=== PATIENT | male | born 1935 | race Caucasian/White ===

== ENCOUNTER 2017-03-23 08:59 | Day surgery (SDC) | payer MEDICARE ==
[2017-03-21 12:15] VITALS: BMI 30.2
[~2017-03-23 08:59] MED LIST: LACTATED RINGERS 1,000 ML IV SCH
[2017-03-23 09:48] LABS: Glucose,Whole Blood 101 mg/dL (75-99)
[2017-03-23 09:50] VITALS: RESP 16; TEMP 97.7
[2017-03-23] MEDS ORDERED: LIDOCAINE 1% 20 ML VIAL (10MG/ML) FOR IV START INTRADERMA ONE (09:53)
[2017-03-23] MEDS ORDERED: PROPOFOL 10 MG/ML 20 ML VIAL IV ONE (10:03)
--- NOTE | 2017-03-23 10:15 | P.PCN ---
Date of Procedure: 03/23/17 Procedure(s) Performed: BRIEF HISTORY: Patient is a 82-year-old, pleasant, white male, scheduled for an elective upper endoscopy as a part of evaluation of globus-like sensation in his throat area and intermittent dysphagia to solids for the last 3 weeks' duration.. PROCEDURE PERFORMED: Esophagogastroduodenoscopy with biopsy and dilation. PREOPERATIVE DIAGNOSIS: Globus pharyngicus and intermittent dysphagia to solids. IV sedation per anesthesia. PROCEDURE: After informed consent was obtained, the patient was brought into the endoscopy unit. IV sedation was administered by Anesthesia under continuous monitoring. Initially the Olympus GIF-140 video endoscope was inserted into the mouth. Esophagus intubated without any difficulty. It was gradually advanced into the stomach and duodenum and carefully examined. The bulb and the second part of the duodenum appeared normal. The scope at this time was withdrawn to the stomach, adequately insufflated with air, and upon careful examination, mucosa of the antrum, body, cardia and the fundus appeared normal. The scope was then withdrawn into the esophagus. Small sliding Hiatal hernia noted. The GE junction was located at 39 cm from the incisors. There was a distal esophageal Schatzki's ring identified at the GE junction and this was dilated using a 15-18 mm balloon for total of 90 seconds and the sequential fashion. Post-dilation there was some oozing identified at the site of dilation. The rest of the esophagus appeared normal. Biopsies were done from esophagus to rule out eosinophilic esophagitis. There were no erosions or ulcerations seen. The proximal cervical esophagus was carefully examined which appeared normal and the patient tolerated the procedure well. IMPRESSION: 1. Distal esophageal Schatzki's ring status post balloon dilation using 15-18 mm TTS balloon as described above. 2. Small Hiatal hernia. 3. Proximal cervical esophagus appeared normal. RECOMMENDATIONS: The findings of this examination were discussed with the patient as well as his family. He was advised to remain on a clear liquid diet for lunch today and soft diet for dinner. We will resume aspirin today.
[2017-03-23 10:47] VITALS: BP 163/71; PULSE 52
== END 2017-03-23 10:56 | disposition home or self-care (01) ==
LOC: ORWHC2ENDO 08:59
PROVIDERS: ATTEND Internal Medicine Gastroenterology
DX: K22.2 Esophageal obstruction (principal); K20.9 Esophagitis, unspecified; K44.9 Diaphragmatic hernia without obstruction or gangrene; I10 Essential (primary) hypertension; E11.9 Type 2 diabetes mellitus without complications; Z79.84 Long term (current) use of oral hypoglycemic drugs; Z79.82 Long term (current) use of aspirin; Z79.899 Other long term (current) drug therapy
CPT/HCPCS: 88305; 43239; 43249; J2704; C1726

== ENCOUNTER → 2019-03-21 | Outpatient (CLI) | payer MEDICARE ==
[2019-03-21 09:42] LABS: Basophils # (A) 0.1 k/uL (0-0.2); Basophils % (A) 1 %; Eosinophils # (A) 0.2 k/uL (0-0.7); Eosinophils % (A) 2 %; HGB 13.7 gm/dL (13.0-17.5); Lymphocytes # (A) 4.4 k/uL (1.0-4.8); Lymphocytes % (A) 41 %; MCH 30.7 pg (25.0-35.0); MCHC 33.4 g/dL (31.0-37.0); Mean Platelet Volume 6.7; Monocytes # (A) 0.5 k/uL (0-1.0); Monocytes % (A) 5 %; Neutrophils # (A) 5.1 k/uL (1.3-7.7); Neutrophils % (A) 48 %; Platelet Count 272 k/uL (150-450); RBC 4.45 m/uL (4.30-5.90); RDW 13.2 % (11.5-15.5); WBC 10.6 k/uL (3.8-10.6)
[2019-03-21 17:40] LABS: African American GFR (CKD) 57.7 (60.0-200.0)
[2019-03-21 18:06] LABS: Hepatitis B Surface Antigen Non-Reactive (Non-Reactive)
== END | disposition home or self-care (01) ==
LOC: LABWHC1 08:56
PROVIDERS: ATTEND Dermatology
DX: L40.0 Psoriasis vulgaris (principal)
CPT/HCPCS: 36415; 82565; 84450; 84460; 85025; 86704; 87340

== ENCOUNTER → 2020-03-25 | Outpatient (CLI) | payer MEDICARE ==
[2020-03-25 12:26] LABS: Basophils # (A) 0.1 k/uL (0-0.2); Basophils % (A) 1 %; Eosinophils # (A) 0.2 k/uL (0-0.7); Eosinophils % (A) 2 %; HGB 13.7 gm/dL (13.0-17.5); Lymphocytes # (A) 3.6 k/uL (1.0-4.8); Lymphocytes % (A) 32 %; MCH 31.6 pg (25.0-35.0); MCHC 34.2 g/dL (31.0-37.0); MCV 92.3 fL (80.0-100.0); Mean Platelet Volume 7.6; Monocytes # (A) 0.5 k/uL (0-1.0); Monocytes % (A) 4 %; Neutrophils # (A) 6.6 k/uL (1.3-7.7); Neutrophils % (A) 59 %; Platelet Count 217 k/uL (150-450); RBC 4.33 m/uL (4.30-5.90); WBC 11.2 k/uL (3.8-10.6)
[2020-03-25 18:48] LABS: African American GFR (CKD) 52.4 (60.0-200.0); Non-African American GFR(CKD) 45.2 (60.0-200.0)
== END | disposition home or self-care (01) ==
LOC: LABWHC1 11:08
PROVIDERS: ATTEND Physician Assistant Medical
DX: L40.0 Psoriasis vulgaris (principal)
CPT/HCPCS: 36415; 82565; 84450; 84460; 85025; 86480

== ENCOUNTER 2021-02-03 10:19 | Observation (INO) | payer MEDICARE ==
[2021-02-03] MEDS ORDERED: METOCLOPRAMIDE 5 MG/ML 2 ML VIAL IVP STA (10:45)
[2021-02-03] MEDS ORDERED: GLUCAGON 1 MG/ML VIAL IVP STA (10:46)
[2021-02-03] MEDS ORDERED: DIAZEPAM 5 MG/ML 2 ML INJ IVP STA (10:46)
[2021-02-03] MEDS ORDERED: NITROGLYCERIN SL TABS 0.4 MG TAB SUBLINGUAL STA (10:46)
--- NOTE | 2021-02-03 12:40 | ED ---
General Adult HPI - General Source: patient, RN notes reviewed Mode of arrival: ambulatory Limitations: no limitations <Oneil Benitez - Last Filed: 02/03/21 13:54> <Timothy Freitas - Last Filed: 02/03/21 20:30> - General Chief complaint: ENT Stated complaint: Unable to Swallow Time Seen by Provider: 02/03/21 10:32 - History of Present Illness Initial comments: Patient is an 85-year-old male presented to the emergency room today with a chief complaint of difficulty swallowing. He does admit that he's had a history of esophageal stricture in the past. He states it's been several years since she's needed to be stretched. He does admit that woke up yesterday and was unable to keep anything down. He states she's not been able to keep down liquids or food. States had the same results as morning when he tried to eat. Patient states feels it stuck approximately chcf down and comes back up. He states was not eating or drinking anything that he believes got stuck in the way. He states that he believes that he's been feeling some sensation of things getting stuck but it is usually past until yesterday. Patient states he has not called his GI specialist. Patient denies any recent fever, chills, shortness of breath, chest pain, back pain, abdominal pain, nausea or vomiting, numbness or tingling, headaches or visual changes, or any other complaints. (Oneil Benitez) - Related Data Home Medications Medication Instructions Recorded Confirmed Latanoprost Ophth [Xalatan 0.005%] 1 drop BOTH EYES HS 03/18/15 02/03/21 Tamsulosin [Flomax] 0.4 mg PO HS 03/18/15 02/03/21 hydroCHLOROthiazide [Hydrodiuril] 25 mg PO DAILY 03/18/15 02/03/21 metFORMIN HCL [Glucophage Xr] 750 mg PO DAILY 03/18/15 02/03/21 Adalimumab [Humira(Cf) Pen] 40 mg SQ Q14D 02/03/21 02/03/21 Brimonidine Tartrate [Alphagan P 1 drop BOTH EYES BID 02/03/21 02/03/21 0.2% Ophth Soln] lisinopriL [Zestril] 20 mg PO DAILY 02/03/21 02/03/21 Allergies Allergy/AdvReac Type Severity Reaction Status Date / Time No Known Allergies Allergy Verified 02/03/21 16:56 Review of Systems ROS Other: All systems not noted in ROS Statement are negative. <EmmanuelOneil - Last Filed: 02/03/21 13:54> ROS Other: All systems not noted in ROS Statement are negative. <Timothy Freitas - Last Filed: 02/03/21 20:30> ROS Statement: Those systems with pertinent positive or pertinent negative responses have been documented in the HPI. Past Medical History Past Medical History: Eye Disorder, Hypertension, Pneumonia, Prostate Disorder Additional Past Medical History / Comment(s): states takes metformin for weight loss, not a diabetic, Hx of dysphagia with dilation of esophagus., glaucoma, hx. heart murmur, pneumonia (2011), enlarged prostate, states he feels like something is stuck in his throat. History of Any Multi-Drug Resistant Organisms: None Reported Past Surgical History: Bowel Resection Additional Past Surgical History / Comment(s): nose surgery x2 Past Anesthesia/Blood Transfusion Reactions: No Reported Reaction Past Psychological History: No Psychological Hx Reported Past Alcohol Use History: Rare Past Drug Use History: None Reported - Past Family History Son(s) Family Medical History: Cancer Additional Family Medical History / Comment(s): BRAIN CANCER Mother Family Medical History: No Reported History <BenitezOneil - Last Filed: 02/03/21 13:54> General Exam Limitations: no limitations <BenitezOneil - Last Filed: 02/03/21 13:54> - General Exam Comments Initial Comments: General: The patient is awake and alert, in no distress, and does not appear acutely ill. Eye: extra-ocular movements are intact. There is normal conjunctiva bilaterally. No signs of icterus. Ears, nose, mouth and throat: There are moist mucous membranes and no oral lesions. Neck: The neck is supple, there is no tenderness or JVD. Cardiovascular: There is a regular rate and rhythm. No murmur, rub or gallop is appreciated. Respiratory: Lungs are clear to auscultation, respirations are non-labored, breath sounds are equal. No wheezes, stridor, rales, or rhonchi. Gastrointestinal: M soft on palpation nontender. Musculoskeletal: Normal ROM, no tenderness. Strength 5/5. Sensation intact. Neurological: A&O x 3. CN II-XII intact, There are no obvious motor or sensory deficits. Coordination appears grossly intact. Speech is normal. Skin: Skin is warm and dry and no rashes or lesions are noted. Psychiatric: Cooperative, appropriate mood & affect, normal judgment. (Oneil Benitez) Course Vital Signs 02/03/21 02/03/21 02/03/21 10:22 11:40 11:52 Temperature 98.0 F Pulse Rate 67 68 64 Respiratory 18 18 18 Rate Blood Pressure 167/84 126/72 153/76 O2 Sat by Pulse 97 99 97 Oximetry 02/03/21 02/03/21 02/03/21 17:05 18:32 18:37 Temperature Pulse Rate 69 82 Respiratory 18 18 Rate Blood Pressure 181/94 91/50 111/60 O2 Sat by Pulse 99 93 L Oximetry 02/03/21 19:55 Temperature 97.4 F L Pulse Rate 64 Respiratory 16 Rate Blood Pressure 151/83 O2 Sat by Pulse 98 Oximetry Medical Decision Making - Lab Data Result diagrams: 02/03/21 18:53 02/03/21 18:53 <Timothy Freitas D - Last Filed: 02/03/21 20:30> - Medical Decision Making Patient is signed out to me by physician animal care assistant Oneil Benitez. Briefly, patient is 85-year-old male with history of esophageal stricture. Patient states that he's been having worsening dysphagia. Gastroenterology was cont acted and will evaluate patient at the bedside. One of our nurses spoke with the Endo nurse and there is plans for Dr. Webb to do upper endoscopy in the Endo suite scheduled for 5:30 PM. I received a report from the nurse that during the endoscopy procedure patient had a 10 second episode of asystole. Patient allegedly did not receive any CPR. He is back to his baseline. During endoscopy there was a distal esophageal stricture with food impaction. The food bolus was removed. Nurse who was in the procedure reports that patient had an episode of asystole during the portion were Dr. Webb was trying to push fluid bolus through the esophageal stricture. Patient evaluated at the bedside at 6:26 PM. He is found to be stable medical condition. Patient had no complaints at the bedside. EKG interpretation: Ventricular rate 82, sinus rhythm,. 162, QRS 82, QTC 429. No MT prolongation, no QTC prolongation, no ST or T-wave changes noted. No old EKG for comparison. Overall this EKG is unremarkable. Laboratory evaluation obtained. There is a leukocytosis of 16.2. Sightly from stress. Patient is no localizing symptoms. Coag panel is negative. Metabolic panel is within acceptable limits. Troponin is 0.015. Chest x-ray is nonacute. Patient reevaluated at bedside at 8:15 PM found to be stable medical condition. Given the patient had a witnessed asystolic event patient be admitted for cardiac monitoring with cardiology consultation. Patient be admitted to [facility]. (Timothy Fretias) - Lab Data Lab Results 02/03/21 02/03/21 02/03/21 Range/Units 18:53 18:53 18:53 WBC 16.2 H (3.8-10.6) k/uL RBC 4.82 (4.30-5.90) m/uL Hgb 14.8 (13.0-17.5) gm/dL Hct 44.3 (39.0-53.0) % MCV 91.8 (80.0-100.0) fL MCH 30.8 (25.0-35.0) pg MCHC 33.5 (31.0-37.0) g/dL RDW 12.8 (11.5-15.5) % Plt Count 283 (150-450) k/uL MPV 7.9 Neutrophils % 60 % Lymphocytes % 33 % Monocytes % 4 % Eosinophils % 1 % Basophils % 1 % Neutrophils # 9.8 H (1.3-7.7) k/uL Lymphocytes # 5.4 H (1.0-4.8) k/uL Monocytes # 0.7 (0-1.0) k/uL Eosinophils # 0.1 (0-0.7) k/uL Basophils # 0.1 (0-0.2) k/uL PT 10.4 (9.0-12.0) sec INR 1.0 (<1.2) APTT 22.2 (22.0-30.0) sec Sodium 138 (137-145) mmol/L Potassium 4.4 (3.5-5.1) mmol/L Chloride 110 H (98-107) mmol/L Carbon Dioxide 19 L (22-30) mmol/L Anion Gap 9 mmol/L BUN 20 (9-20) mg/dL Creatinine 1.34 H (0.66-1.25) mg/dL Est GFR (CKD-EPI)AfAm 55 (>60 ml/min/1.73 sqM) Est GFR (CKD-EPI)NonAf 48 (>60 ml/min/1.73 sqM) Glucose 110 H (74-99) mg/dL Calcium 9.3 (8.4-10.2) mg/dL Magnesium 1.8 (1.6-2.3) mg/dL Troponin I (0.000-0.034) ng/mL 02/03/21 Range/Units 18:53 WBC (3.8-10.6) k/uL RBC (4.30-5.90) m/uL Hgb (13.0-17.5) gm/dL Hct (39.0-53.0) % MCV (80.0-100.0) fL MCH (25.0-35.0) pg MCHC (31.0-37.0) g/dL RDW (11.5-15.5) % Plt Count (150-450) k/uL MPV Neutrophils % % Lymphocytes % % Monocytes % % Eosinophils % % Basophils % % Neutrophils # (1.3-7.7) k/uL Lymphocytes # (1.0-4.8) k/uL Monocytes # (0-1.0) k/uL Eosinophils # (0-0.7) k/uL Basophils # (0-0.2) k/uL PT (9.0-12.0) sec INR (<1.2) APTT (22.0-30.0) sec Sodium (137-145) mmol/L Potassium (3.5-5.1) mmol/L Chloride (98-107) mmol/L Carbon Dioxide (22-30) mmol/L Anion Gap mmol/L BUN (9-20) mg/dL Creatinine (0.66-1.25) mg/dL Est GFR (CKD-EPI)AfAm (>60 ml/min/1.73 sqM) Est GFR (CKD-EPI)NonAf (>60 ml/min/1.73 sqM) Glucose (74-99) mg/dL Calcium (8.4-10.2) mg/dL Magnesium (1.6-2.3) mg/dL Troponin I 0.015 (0.000-0.034) ng/mL Disposition <Oneil Benitez - Last Filed: 02/03/21 13:54> <Timothy Freitas - Last Filed: 02/03/21 20:30> Clinical Impression: Asystole Disposition: ADMITTED IP TO THIS HOSP Condition: Fair Referrals: Alondra Casanova MD [Primary Care Provider] - 1-2 days
[2021-02-03] MEDS ORDERED: ePHEDrine SULFATE/0.9% NACL/PF 50 MG/5 ML SYRINGE IV ONE (17:33)
[2021-02-03] MEDS ORDERED: PROPOFOL 10 MG/ML 20 ML VIAL IV ONE (17:33)
[2021-02-03] MEDS ORDERED: LIDOCAINE 1% INJ 10MG/ML (20 ML MDV) ONE (17:33)
[2021-02-03] MEDS ORDERED: GLYCOPYRROLATE 0.2 MG/ML 2 ML VIAL ONE (17:33)
[2021-02-03] MEDS ORDERED: SODIUM CHLORIDE 0.9% 500 ML 500 ML IV ONE (17:42)
--- NOTE | 2021-02-03 18:11 | P.PCN ---
Date of Procedure: 02/03/21 Procedure(s) Performed: BRIEF HISTORY: Patient is a 79-year-old, pleasant, white male came to the emergency room with food impaction. He was eating toast with meat yesterday evening and could not swallow any further. He scheduled for an upper endoscopy. He had a similar episode about 3 years ago and last EGD was performed in 70 PROCEDURE PERFORMED: Esophagogastroduodenoscopy with foreign body removal. PREOPERATIVE DIAGNOSIS: Acute food impaction. IV sedation per anesthesia. PROCEDURE: After informed consent was obtained, the patient was brought into the endoscopy unit. IV sedation was administered by Anesthesia under continuous monitoring. Initially the Olympus GIF-140 video endoscope was inserted into the mouth. Esophagus intubated without any difficulty. It was gradually advanced into the midesophagus. There was large amount of liquid was aspirated. In the distal esophagus there was a food bolus that was impacted and using the snare that was able to remove part of the food bolus of the mouth. Subsequently the rest of the food was gently pushed into the stomach. The scope was advanced into the stomach and duodenum and carefully examined. The bulb and the second part of the duodenum appeared normal. The scope at this time was withdrawn to the stomach, adequately insufflated with air, and upon careful examination, mucosa of the antrum, body, cardia and the fundus appeared normal. The scope was then withdrawn into the esophagus. The GE junction was located at 39 cm from the incisors. Small to moderate size hiatal hernia noted. There was a distal esophageal stricture identified with a luminal diameter of 12-15 mm but no esophageal dilation was performed because of prolonged food impaction. The rest of esophagus was very tortuous especially in the distal esophagus. the patient tolerated the procedure well. IMPRESSION: 1. Distal esophageal stricture with food impaction status post removal as described above. 2. Tortuous distal esophagus. RECOMMENDATIONS: The findings of this examination were discussed with the patient. Patient had an episode of asystole and bradycardia during the procedure and hence he will be sent back to the floor for the cardiac workup and if needed hospitalization today. He will be started on a soft diet and continue on Protonix 40 mg by mouth daily..
[2021-02-03 19:03] LABS: Basophils # (A) 0.1 k/uL (0-0.2); Basophils % (A) 1 %; Eosinophils # (A) 0.1 k/uL (0-0.7); Eosinophils % (A) 1 %; HCT 44.3 % (39.0-53.0); HGB 14.8 gm/dL (13.0-17.5); Lymphocytes # (A) 5.4 k/uL (1.0-4.8); Lymphocytes % (A) 33 %; MCH 30.8 pg (25.0-35.0); MCHC 33.5 g/dL (31.0-37.0); MCV 91.8 fL (80.0-100.0); Mean Platelet Volume 7.9; Monocytes # (A) 0.7 k/uL (0-1.0); Monocytes % (A) 4 %; Neutrophils # (A) 9.8 k/uL (1.3-7.7); Neutrophils % (A) 60 %; Platelet Count 283 k/uL (150-450); RBC 4.82 m/uL (4.30-5.90); RDW 12.8 % (11.5-15.5); WBC 16.2 k/uL (3.8-10.6)
[2021-02-03 19:12] LABS: Calcium 9.3 mg/dL (8.4-10.2); Magnesium 1.8 mg/dL (1.6-2.3); Potassium 4.4 mmol/L (3.5-5.1)
[2021-02-03 19:46] LABS: Partial Thromboplastin Time 22.2 sec (22.0-30.0); Prothrombin Time 10.4 sec (9.0-12.0)
--- NOTE | 2021-02-03 19:49 | CONS ---
CONSULTATION DATE OF SERVICE: February 03, 2021. REASON FOR CONSULTATION: Acute food impaction. HISTORY OF PRESENT ILLNESS: The patient is an 85-year-old pleasant white male with history of esophageal stricture in the past. Came to the emergency room this afternoon complaining of dysphagia. Apparently, he ate some dinner last night after which he was not able to swallow any further. The patient does not recall what he ate, but he thinks it hamburger gravy and toast. In the ER, he was given glucagon with no help. He was given some sips of water and patient could not swallow any further and hence we are consulted for EGD with foreign body removal. The patient states that he had a similar episode in 2017. He denies any heartburn. PAST MEDICAL HISTORY: Significant for hypertension, hyperlipidemia, diabetes mellitus. MEDICATIONS: At home, aspirin, metformin, lisinopril, hydrochlorothiazide, Flomax, Xalatan. ALLERGIES: None. SOCIAL HISTORY: No smoking. No alcohol use. SURGICAL HISTORY: Bowel resection and EGD with dilation. FAMILY HISTORY: Son had brain cancer. REVIEW OF SYSTEMS: CARDIOPULMONARY: He denies any chest pain or shortness of breath. GENITOURINARY: No dysuria or hematuria. MUSCULOSKELETAL unremarkable. SKIN unremarkable. ENDOCRINE unremarkable. PSYCHIATRIC: Unremarkable. NEUROLOGY: Unremarkable. ENT/VISION: Unremarkable. CONSTITUTIONAL: No recent weight loss. No fever, chills, night sweats. PHYSICAL EXAMINATION: Blood pressure is 167/84, pulse rate 67, temperature 98. HEENT examination unremarkable. Conjunctivae pink. Sclerae anicteric. Oral cavity no lesions. NECK: No JVD or lymph node enlargement. CHEST was clear to auscultation. HEART: Regular rate and rhythm. ABDOMEN: Soft, bowel sounds are positive. No organomegaly. EXTREMITIES: No pedal edema. NEURO: He is alert and oriented x3. No focal deficits. IMPRESSION: Acute food impaction in this patient who had prior episodes in the past. Last EGD with dilation was in 2017. RECOMMENDATIONS: Proceed with EGD with foreign body removal. Discussed with the patient the risks, benefits and complications and he is agreeable to it. Thank you for this consultation. MMODL / IJN: [id number] /
--- NOTE | 2021-02-03 19:55 | XR ---
EXAMINATION TYPE: XR chest 1V portable DATE OF EXAM: 02/03/2021 COMPARISON: NONE HISTORY: Chest pain TECHNIQUE: Single frontal view of the chest is obtained. FINDINGS: There is no focal air space opacity, pleural effusion, or pneumothorax seen. The cardiac silhouette size is within normal limits. The osseous structures are intact. IMPRESSION: No acute process.
[2021-02-03] MEDS ORDERED: NALOXONE 0.4 MG/ML 1 ML VIAL IV PRN (20:28)
[2021-02-03] MEDS ORDERED: SODIUM CHLORIDE 0.9% 1,000 ML IV SCH (20:30)
--- NOTE | 2021-02-04 01:25 | P.HPIM ---
History of Present Illness H&P Date: 02/03/21 Chief Complaint: arrhythmia 85 year old male with hypertension , BPH patient presented for EGD with GI , due to dysphagia to solids. He tolerated procedure and found to have esophageal stricture. however to mcdaniels the end of the procedure , he had an episode of bradycardia and possible brief asystole. for which he was kept overnight for monitoring and cardiology eval he is feeling well, tolerating PO intake , denies any chest pain , trouble breathing, syncope or near syncope , dizziness, nausea or vomiting, abd pain changes in urinary or bowel habits. denies history of CAD , or arrhythmias , denies any cardiac history Troponin is negative EKG NSR with PVCs Review of Systems Pertinent positives as noted in HPI. All other systems were reviewed and are negative Past Medical History Past Medical History: Eye Disorder, Hypertension, Pneumonia, Prostate Disorder Additional Past Medical History / Comment(s): states takes metformin for weight loss, not a diabetic, Hx of dysphagia with dilation of esophagus., glaucoma, hx. heart murmur, pneumonia (2011), enlarged prostate, states he feels like something is stuck in his throat. History of Any Multi-Drug Resistant Organisms: None Reported Past Surgical History: Bowel Resection Additional Past Surgical History / Comment(s): nose surgery x2 Past Anesthesia/Blood Transfusion Reactions: No Reported Reaction Past Psychological History: No Psychological Hx Reported Past Alcohol Use History: Rare Past Drug Use History: None Reported - Past Family History Son(s) Family Medical History: Cancer Additional Family Medical History / Comment(s): BRAIN CANCER Mother Family Medical History: No Reported History Medications and Allergies Home Medications Medication Instructions Recorded Confirmed Type Latanoprost Ophth [Xalatan 0.005%] 1 drop BOTH EYES HS 03/18/15 02/03/21 History Tamsulosin [Flomax] 0.4 mg PO HS 03/18/15 02/03/21 History hydroCHLOROthiazide [Hydrodiuril] 25 mg PO DAILY 03/18/15 02/03/21 History metFORMIN HCL [Glucophage Xr] 750 mg PO DAILY 03/18/15 02/03/21 History Adalimumab [Humira(Cf) Pen] 40 mg SQ Q14D 02/03/21 02/03/21 History Brimonidine Tartrate [Alphagan P 1 drop BOTH EYES BID 02/03/21 02/03/21 History 0.2% Ophth Soln] lisinopriL [Zestril] 20 mg PO DAILY 02/03/21 02/03/21 History Allergies Allergy/AdvReac Type Severity Reaction Status Date / Time No Known Allergies Allergy Verified 02/03/21 16:56 Physical Exam Vitals: Vital Signs Temp Pulse Resp BP Pulse Ox 02/03/21 19:55 97.4 F L 64 16 151/83 98 02/03/21 18:37 111/60 02/03/21 18:32 82 18 91/50 93 L 02/03/21 17:05 69 18 181/94 99 02/03/21 11:52 64 18 153/76 97 02/03/21 11:40 68 18 126/72 99 02/03/21 10:22 98.0 F 67 18 167/84 97 Intake and Output 02/03/21 02/03/21 02/03/21 06:59 14:59 22:59 Intake Total 400 Balance 400 Intake: IV 400 Other: Weight 88.451 kg Constitutional: No acute distress, conversant, pleasant Eyes: Anicteric sclerae, moist conjunctiva, Pupils equal round reactive to light ENMT: NC/AT Oropharynx clear, no erythema, or exudates Neck: Supple, FROM, no masses, or JVD No carotid bruits No thyromegaly Lungs: Clear to auscultation Clear to percussion Normal respiratory effort, no accessory muscle use Cardiovascular: Heart regular in rate and rhythm, No murmurs, gallops, or rubs No peripheral edema Abdominal: Soft Nontender, no guarding, rebound or rigidity Abdomen moving with respiration Normoactive bowel sounds No hepatomegaly, No splenomegaly No palpable mass No abdominal wall hernia noted Skin: Normal temperature, tone, texture, turgor No induration No subcutaneous nodules No rash, lesions No ulcers Extremities: No digital cyanosis No clubbing Pedal pulses intact and symmetrical Radial pulses intact and symmetrical No calf tenderness Psychiatric: Alert and oriented to person, place and time Appropriate affect fair judgement Neuro Muscles Strength 5/5 in all 4 extremities Sensation to light touch grossly present throughout Cranial nerves II-XII grossly intact No focal sensory deficits Lymphatics: no palpable cervical or supraclavicular , or inguinal lymph nodes Results CBC & Chem 7: 02/03/21 18:53 02/03/21 18:53 Labs: Abnormal Lab Results - Last 24 Hours (Table) 02/03/21 02/03/21 Range/Units 18:53 18:53 WBC 16.2 H (3.8-10.6) k/uL Neutrophils # 9.8 H (1.3-7.7) k/uL Lymphocytes # 5.4 H (1.0-4.8) k/uL Chloride 110 H (98-107) mmol/L Carbon Dioxide 19 L (22-30) mmol/L Creatinine 1.34 H (0.66-1.25) mg/dL Glucose 110 H (74-99) mg/dL Assessment and Plan Assessment: Episodes of bradycardia and possible asystole cardiac monitoring EKG normal sinus rhythm with PVCs Trend troponins Cardiology eval Electrolytes unremarkable Troponins negative Dysphagia status post EGD Found to have esophageal strictures Management per GI Follow-up outpatient BPH resume Flomax Full code DVT prophylaxis mechanical Discussed with: Patient, ER, RN Anticipated length of stay less than than [address]: home A total of 65 minutes was spent on the care of this complex patient more than 50% of the time was spent in counseling and care coordination.
[2021-02-04 05:07] LABS: Calcium 8.5 mg/dL (8.4-10.2); Potassium 4.2 mmol/L (3.5-5.1)
[2021-02-04] MEDS ORDERED: lisinopriL 20 MG TAB PO SCH (09:00)
--- NOTE | 2021-02-04 13:01 | P.CRDCN ---
History of Present Illness History of present illness: HISTORY OF PRESENTING ILLNESS This is a pleasant 85-year-old male past medical history significant for hypertension, esophageal stricture and aortic stenosis. 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 We have been asked to see in consultation for bradycardia during EGD. He presented to ER yesterday with symptoms of something being stuck in his throat. He underwent an EGD with foreign body removal. According to the EGD report there was an episode of asystole and bradycardia during the procedure. There is no telemetry tracings documentation of this episode. EKG reveals sinus rhythm with occasional PVCs. Heart rate of 82. Telemetry tracings reviewed, persistent sinus mechanism with no significant pauses or bradycardia noted. Chest x-ray is negative for an acute cardiopulmonary process. Laboratory data reviewed, WBC 16.2, hemoglobin 14.8, platelets 283, sodium 134, potassium 4.2, creatinine 1.29, magnesium 1.8 troponin negative 1. Review of records reveals he had an echocardiogram in 2015 revealing preserved LV systolic function with ejection fraction 60-65% with mild aortic stenosis with a mean gradient of 12 mmHg and a valve area of 2.5 cm. Current daily cardiac medications include hydrochlorothiazide 25 mg daily and lisinopril 20 mg daily. REVIEW OF SYSTEMS At the time of my exam: CONSTITUTIONAL: Denies fever or chills. CARDIOVASCULAR: Denies chest pain, shortness of breath, orthopnea, PND or palpitations. RESPIRATORY: Denies cough. GASTROINTESTINAL: Denies abdominal pain, diarrhea, constipation, nausea or vomiting. MUSCULOSKELETAL: Denies myalgias. NEUROLOGIC: Denies numbness, tingling, headache or weakness. ENDOCRINE: Denies fatigue, weight change, polydipsia or polyurina. GENITOURINARY: Denies burning, hematuria or urgency with micturation. HEMATOLOGIC: Denies history of anemia or bleeding. PHYSICAL EXAMINATION Blood pressure 174/74 heart rate 58 afebrile and maintaining oxygen saturation on room air. CONSTITUTIONAL: No apparent distress. HEENT: Head is normocephalic. Pupils are equal, round. Sclerae anicteric. Mucous membranes of the mouth are moist. No JVD. No carotid bruit. CHEST EXAMINATION: Lungs are clear to auscultation. No chest wall tenderness is noted on palpation or with deep breathing. HEART EXAMINATION: Regular rate and rhythm. S1, S2 heard. Soft systolic ejection murmur at the base, no gallops or rub. ABDOMEN: Soft, nontender. EXTREMITIES: 2+ peripheral pulses, no lower extremity edema and no calf tenderness. NEUROLOGIC EXAMINATION: Patient is awake, alert and oriented x3. ASSESSMENT Food impaction s/p EGD Possible bradycardia Hypertension Aortic stenosis PLAN Cannot confirm if there was actual bradycardia, as there are no telemetry strips for review. Obtain 2D echocardiogram and doppler study to assess cardiac structure and function. Thank you kindly for this consultation. Nurse Practitioner note has been reviewed, I agree with a documented findings and plan of care. Patient was seen and examined. Past Medical History Past Medical History: Eye Disorder, Hypertension, Pneumonia, Prostate Disorder Additional Past Medical History / Comment(s): states takes metformin for weight loss, not a diabetic, Hx of dysphagia with dilation of esophagus., glaucoma, hx. heart murmur, pneumonia (2011), enlarged prostate, states he feels like something is stuck in his throat. History of Any Multi-Drug Resistant Organisms: None Reported Past Surgical History: Bowel Resection Additional Past Surgical History / Comment(s): nose surgery x2 Past Anesthesia/Blood Transfusion Reactions: No Reported Reaction Past Psychological History: No Psychological Hx Reported Past Alcohol Use History: Rare Past Drug Use History: None Reported - Past Family History Son(s) Family Medical History: Cancer Additional Family Medical History / Comment(s): BRAIN CANCER Mother Family Medical History: No Reported History Medications and Allergies Home Medications Medication Instructions Recorded Confirmed Type Latanoprost Ophth [Xalatan 0.005%] 1 drop BOTH EYES HS 03/18/15 02/03/21 History Tamsulosin [Flomax] 0.4 mg PO HS 03/18/15 02/03/21 History hydroCHLOROthiazide [Hydrodiuril] 25 mg PO DAILY 03/18/15 02/03/21 History metFORMIN HCL [Glucophage Xr] 750 mg PO DAILY 03/18/15 02/03/21 History Adalimumab [Humira(Cf) Pen] 40 mg SQ Q14D 02/03/21 02/03/21 History Brimonidine Tartrate [Alphagan P 1 drop BOTH EYES BID 02/03/21 02/03/21 History 0.2% Ophth Soln] lisinopriL [Zestril] 20 mg PO DAILY 02/03/21 02/03/21 History Allergies Allergy/AdvReac Type Severity Reaction Status Date / Time No Known Allergies Allergy Verified 02/03/21 16:56 Physical Exam Vitals: Vital Signs Temp Pulse Pulse Resp BP BP Pulse Ox 02/04/21 11:31 98.1 F 58 L 18 174/74 97 02/04/21 08:00 98 F 70 18 149/66 98 02/04/21 06:27 98.3 F 75 16 150/72 97 02/04/21 02:00 98.1 F 74 16 147/60 98 02/03/21 19:55 97.4 F L 64 16 151/83 98 02/03/21 18:37 111/60 02/03/21 18:32 82 18 91/50 93 L 02/03/21 17:05 69 18 181/94 99 Intake and Output 02/03/21 02/04/21 02/04/21 22:59 06:59 14:59 Intake Total 400 Balance 400 Intake: IV 400 Other: Weight 88.451 kg Results 02/03/21 18:53 02/04/21 04:39 Cardiac Enzymes 02/03/21 Range/Units 18:53 Troponin I 0.015 (0.000-0.034) ng/mL Coagulation 02/03/21 Range/Units 18:53 PT 10.4 (9.0-12.0) sec APTT 22.2 (22.0-30.0) sec CBC 02/03/21 Range/Units 18:53 WBC 16.2 H (3.8-10.6) k/uL RBC 4.82 (4.30-5.90) m/uL Hgb 14.8 (13.0-17.5) gm/dL Hct 44.3 (39.0-53.0) % Plt Count 283 (150-450) k/uL Comprehensive Metabolic Panel 02/03/21 02/04/21 Range/Units 18:53 04:39 Sodium 138 134 L (137-145) mmol/L Potassium 4.4 4.2 (3.5-5.1) mmol/L Chloride 110 H 105 (98-107) mmol/L Carbon Dioxide 19 L 20 L (22-30) mmol/L BUN 20 23 H (9-20) mg/dL Creatinine 1.34 H 1.29 H (0.66-1.25) mg/dL Glucose 110 H 115 H (74-99) mg/dL Calcium 9.3 8.5 (8.4-10.2) mg/dL Current Medications Generic Name Dose Route Start Last Admin Trade Name Freq PRN Reason Stop Dose Admin Sodium Chloride 1,000 mls @ 20 mls/hr 02/03/21 20:30 02/04/21 07:58 Saline 0.9% IV Not Given .Q24H MAMTA Lisinopril 20 mg 02/04/21 09:00 02/04/21 08:15 Lisinopril 20 Mg Tab PO 20 mg DAILY MAMTA Administration Naloxone HCl 0.2 mg 02/03/21 20:28 Naloxone 0.4 Mg/Ml 1 Ml Vial IV Q2M PRN Opioid Reversal Tamsulosin HCl 0.4 mg 02/04/21 21:00 Tamsulosin 0.4 Mg Cap.Er.24h PO HS MAMTA Intake and Output 02/03/21 02/04/21 02/04/21 22:59 06:59 14:59 Intake Total 400 Balance 400 Intake: IV 400 Other: Weight 88.451 kg 02/03/21 18:53 02/04/21 04:39
[2021-02-04 15:43] VITALS: BP 186/80
[2021-02-04] MEDS ORDERED: hydrALAZINE HCL 25 MG TAB PO STA (16:11)
--- NOTE | 2021-02-04 16:22 | P.DS ---
Providers Date of admission: 02/03/21 20:29 Expected date of discharge: 02/04/21 Attending physician: Danielle Marie MD Consults: 02/04/21 01:18 Consult Physician Routine Consulting Provider: Brad Null Consult Reason/Comments: asystole and bradycardia during EGD Do you want consulting provider notified?: Yes, Notify in am Primary care physician: Alondra Casanova MD Hospital Course: Episodes of bradycardia and possible asystole cardiac monitoring Dysphagia Food Impaction Esophageal Stricture Patient admitted after episode of bradycardia for cardiology evaluation. Pt seen by cardiology who reviewed with no further bradycardic events. They recommended d/c with PCP f/u. Pt had no further complaints or events during hospitalization. Trops negative. Pt had resolution of his dysphagia symptoms as well while in house following EGD for food impaction. Pt will f/u with GI. Assessment: Gen: awake, alert HEENT: normocephalic, atraumatic, good hearing acuity, moist mucous membranes Resp: good air exchange, breathing comfortably with no accessory muscle use CVS: good distal perfusion x 4, GI: soft, NTTP, ND : no SPT, no CVAT, cox catheter not present MSK: no pitting edema, no clubbing Neuro: non-focal, moving all extremities Psych: cooperative, euthymic mood Patient Condition at Discharge: Good Plan - Discharge Summary New Discharge Prescriptions: Continue Latanoprost Ophth [Xalatan 0.005%] 1 drop BOTH EYES HS metFORMIN HCL [Glucophage Xr] 750 mg PO DAILY Tamsulosin [Flomax] 0.4 mg PO HS hydroCHLOROthiazide [Hydrodiuril] 25 mg PO DAILY lisinopriL [Zestril] 20 mg PO DAILY Adalimumab [Humira(Cf) Pen] 40 mg SQ Q14D Brimonidine Tartrate [Alphagan P 0.2% Ophth Soln] 1 drop BOTH EYES BID Discharge Medication List Latanoprost Ophth [Xalatan 0.005%] 1 drop BOTH EYES HS 03/18/15 [History] Tamsulosin [Flomax] 0.4 mg PO HS 03/18/15 [History] hydroCHLOROthiazide [Hydrodiuril] 25 mg PO DAILY 03/18/15 [History] metFORMIN HCL [Glucophage Xr] 750 mg PO DAILY 03/18/15 [History] Adalimumab [Humira(Cf) Pen] 40 mg SQ Q14D 02/03/21 [History] Brimonidine Tartrate [Alphagan P 0.2% Ophth Soln] 1 drop BOTH EYES BID 02/03/21 [History] lisinopriL [Zestril] 20 mg PO DAILY 02/03/21 [History] Follow up Appointment(s)/Referral(s): Brad Null MD [STAFF PHYSICIAN] - 1 Week (Office will call you with an appointment.) Alondra Casanova MD [Primary Care Provider] - 02/06/21 10:30 am Patient Instructions/Handouts: Bradycardia (DC), Upper Endoscopy (DC) Discharge Disposition: HOME SELF-CARE
[2021-02-04 16:35] VITALS: PULSE 66; RESP 16; TEMP 97.6
[2021-02-04] MEDS ORDERED: TAMSULOSIN 0.4 MG CAP.ER.24H PO SCH (21:00)
--- NOTE | 2021-02-05 11:31 | ECHOF ---
Referral Reason:MURMUR MEASUREMENTS -------- HEIGHT: 175.3 cm WEIGHT: 88.5 kg BP: RVIDd: 3.2 cm (< 3.3) IVSd: 1.4 cm (0.6 - 1.1) LVIDd: 4.6 cm (3.9 - 5.3) LVPWd: 1.8 cm (0.6 - 1.1) IVSs: 1.9 cm LVIDs: 3.3 cm LVPWs: 1.7 cm LA Diam: 5.0 cm (2.7 - 3.8) MV EXCURSION: 19.913 mm (> 18.000) MV EF SLOPE: 65 mm/s (70 - 150) EPSS: 0.7 cm MV E Eligio: 0.49 m/s MV DecT: 234 ms MV A Eligio: 0.98 m/s MV E/A Ratio: 0.50 AV maxP.79 mmHg AV meanP.23 mmHg FINDINGS -------- Sinus rhythm. This was a technically adequate study. The left ventricular size is normal. There is moderate concentric left ventricular hypertrophy. O verall left ventricular systolic function is normal with, an EF between 55 - 60 %. The right ventricle is normal in size. The left atrium is markedly dilated. The right atrial size is normal. There is moderate to severe aortic valve sclerosis. There is mild aortic regurgitation. There is moderate aortic stenosis present. Peak/mean gradient across the Aortic Valve is 51.79mmHg / 31.23mm Hg. Mild mitral annular calcification present. Mild mitral regurgitation is present. The tricuspid valve appears structurally normal. Mild tricuspid regurgitation present. Right vent ricular systolic pressure is normal at < 35 mmHg. Trace/mild (physiologic) pulmonic regurgitation. Echo free space represents a pericardial fat pad. CONCLUSIONS -------- 1. There is moderate concentric left ventricular hypertrophy. 2. Overall left ventricular systolic function is normal with, an EF between 55 - 60 %. 3. The left atrium is markedly dilated. 4. There is mild aortic regurgitation. 5. There is moderate aortic stenosis present. 6. Peak/mean gradient across the Aortic Valve is 51.79mmHg / 31.23mmHg. 7. Mild mitral annular calcification present. 8. Mild mitral regurgitation is present. 9. Mild tricuspid regurgitation present. 10. Trace/mild (physiologic) pulmonic regurgitation. 11. Echo free space represents a pericardial fat pad. STUCC[employer] PLASTERER: Hannah Lema RDCS
== END 2021-02-04 16:43 | disposition home or self-care (01) ==
LOC: EC 10:19 → 3SCARD 20:29
PROVIDERS: ADMIT Internal Medicine; ATTEND Internal Medicine
DX: R00.1 Bradycardia, unspecified (principal); K22.2 Esophageal obstruction; N40.0 Benign prostatic hyperplasia without lower urinary tract symptoms; D72.829 Elevated white blood cell count, unspecified; E11.9 Type 2 diabetes mellitus without complications; E78.5 Hyperlipidemia, unspecified; Z20.822 Contact with and (suspected) exposure to COVID-19; I10 Essential (primary) hypertension; I35.0 Nonrheumatic aortic (valve) stenosis; I49.3 Ventricular premature depolarization; K44.9 Diaphragmatic hernia without obstruction or gangrene; Z79.84 Long term (current) use of oral hypoglycemic drugs; Z79.899 Other long term (current) drug therapy; Z80.8 Family history of malignant neoplasm of other organs or systems
CPT/HCPCS: 99285; 36415; 93005; 93306; 80048 ×2; 83735; 84484; 85025; 85610; 85730; 87635; 71045; 43247; G0378 ×2; J1610; J2765; J3360; J2001; J2704

== ENCOUNTER → 2023-03-02 | Outpatient (CLI) | payer MEDICARE ==
[2023-03-02 10:42] LABS: African American GFR (CKD) 42 (>60 ml/min/1.73 sqM); Blood Urea Nitrogen 22 mg/dL (9-20); Non-African American GFR(CKD) 37 (>60 ml/min/1.73 sqM)
== END | disposition home or self-care (01) ==
LOC: RADCTMAIN 09:52
PROVIDERS: ATTEND Internal Medicine Interventional Cardiology
DX: I65.8 Occlusion and stenosis of other precerebral arteries (principal)
CPT/HCPCS: 82565; 84520